=== PATIENT | female | born 1995 | race African-American/Black ===

== ENCOUNTER 2024-06-05 17:59 | Emergency (ER) | payer OTHER ==
[~2024-06-05] VITALS: Ht 172.7 cm; Wt 116.0 kg
[2024-06-05 18:02] VITALS: BP 141/87; TEMP 97.9; O2SAT 97
[2024-06-05 18:26] VITALS: PULSE 92; RESP 18
== END 2024-06-05 19:37 | disposition home or self-care (01) ==
LOC: ER 18:10
DX: R59.1 Generalized enlarged lymph nodes (principal); R51.9 Headache, unspecified; Z88.2 Allergy status to sulfonamides
CPT/HCPCS: 70450; 99284; Z7610

== ENCOUNTER 2025-01-28 23:00 | Emergency (ER) | payer OTHER ==
[~2025-01-28] VITALS: Ht 170.2 cm; Wt 105.0 kg
[2025-01-28 23:07] VITALS: BP 134/91; PULSE 83; RESP 18; TEMP 36.8; O2SAT 99
[2025-01-29] MEDS ORDERED: LIDO700A15 TP (00:19)
[2025-01-29] MEDS ORDERED: NAPR-1176 MT (00:19)
[2025-01-29] MEDS: ACETAMINOPHEN 325MG TABLET PO ONE (00:38)
== END 2025-01-29 00:44 | disposition home or self-care (01) ==
LOC: ER 23:00
DX: M79.644 Pain in right finger(s) (principal); Z79.1 Long term (current) use of non-steroidal anti-inflammatories (NSAID); Z88.2 Allergy status to sulfonamides
CPT/HCPCS: 73130; 99283